=== PATIENT | female | born 1955 | race Caucasian/White ===

== ENCOUNTER 2018-01-23 07:47 | Day surgery (SDC) | payer BC ==
[~2018-01-23 07:47] MED LIST: ACETAMINOPHEN 1,000 MG/100 ML BTL IV ONE
[2018-01-23] MEDS ORDERED: BUPIVACAINE 0.25% W/EPI MPF 30ML VIAL IVP ONE (07:48)
[2018-01-23] MEDS ORDERED: ONDANSETRON HCL IV 4 MG/2 ML VIAL IVP ONE (07:48)
[2018-01-23] MEDS ORDERED: MIDAZOLAM HCL 2MG/2ML VIAL IV ONE (07:48)
[2018-01-23] MEDS ORDERED: LIDOCAINE 2% MDV (20MG/ML) 20ML VIAL IV ONE (07:48)
[2018-01-23] MEDS ORDERED: SEVOFLURANE 250 ML INH ONE (07:48)
[2018-01-23] MEDS ORDERED: PROPOFOL 10 MG/ML VIAL IV ONE (07:48)
[2018-01-23] MEDS ORDERED: DEXAMETHASONE 4 MG/ML 1ML VIAL IVP ONE (07:48)
[2018-01-23] MEDS ORDERED: FENTANYL PF 100MCG/2ML VIAL IV ONE (07:48)
[2018-01-23] MEDS ORDERED: HYDROCODONE/APAP 5/325MG TABLET PO ONE (07:48)
[2018-01-23 09:29] LABS: BLOOD UREA NITROGEN 15 mg/dL (8-23); CREATININE 0.7 mg/dL (0.5-0.9); EST GLOMERULAR FILTRATION RATE > 60 mL/min; GLUCOSE,RANDOM 102 mg/dL (74-109)
[2018-01-23 09:51] LABS: BASO % 0.8 % (0-6); EOS % 1.7 % (0-6); GRAN % 66.5 % (47-80); HEMATOCRIT 40.7 % (35.0-47.0); HEMOGLOBIN 13.1 gm/dl (11.6-16.0); LYMPH % 25.6 % (16-45); MEAN CELL VOLUME 91.5 fl (81-97); MEAN CORPUSCULAR HEMOGLOBIN 29.4 pg (27-33); MEAN CORPUSCULAR HGB CONC 32.2 g/dl (32-36); MEAN PLATELET VOLUME 8.8 fl (7.4-10.4); MONO % 5.4 % (0-9); PLATELET COUNT 301 K/uL (130-400); RED BLOOD COUNT 4.45 M/uL (3.80-5.40); RED CELL DISTRIBUTION WIDTH 15.3 % (11.5-14.5); WHITE BLOOD COUNT W/O DIFF 7.2 K/uL (4.2-12.2)
--- NOTE | 2018-01-24 13:20 | Operative Note ---
DATE OF SURGERY: Surgeon: Duran Franks DO PREOPERATIVE DIAGNOSES: 1. Torn medial meniscus of the left knee. 2. Osteoarthritis, left knee. POSTOPERATIVE DIAGNOSES: 1. Osteoarthritis of the left knee. 2. Synovitis of the left knee. OPERATION: 1. Arthroscopic chondroplasty of the patella, trochlea, medial femoral condyle, and lateral tibial plateau, left knee. 2. Arthroscopic partial synovectomy, left knee (2 compartments). DESCRIPTION OF PROCEDURE: This 62-year-old female was taken to the operating room and placed in the supine position on the operating room table where general anesthesia was induced. The left lower extremity was elevated. It was exsanguinated and the tourniquet inflated to 300 mmHg. Arthroscopic knee vazquez applied. Left knee prepped with Hibiclens and draped in the usual sterile fashion. An inferolateral portal was established for the 4 mm arthroscope and initial evaluation of the joint demonstrated advanced degenerative disease at the patellofemoral joint. An inferomedial portal was subsequently established. There was also evidence of chondrocalcinosis of the joint affecting all compartments. Through an inferomedial portal, chondroplasty of the patella was performed. A very large area which was completely denuded of all articular cartilage covering both the medial and lateral facets and median ridge occupying approximately 80% of the articular surface of the patella. In addition, there was an area of about 2 cm of the center of the trochlea which demonstrated full-thickness articular cartilage loss there as well with loose fragmented articular cartilage at the edges of this lesion. Chondroplasty was performed to restore stability to the articular cartilage there. Some synovitis was present there as well and partial synovectomy was performed. The medial compartment was entered, and large chunks of loose fragments of articular cartilage were present. Again chondrocalcinosis noted there as well. The articular cartilage was debrided with the rotating shaver to stable periphery. No normal articular cartilage of the medial femoral condyle was present. The medial meniscus was probed throughout its entirety. I did not see any significant pathology of the meniscus. We then directed our attention to the intracondylar notch, which was found to be normal. The lateral compartment was entered and again more chondrocalcinosis noted. There was also grade 3 change noted in the center of the weightbearing surface of the lateral tibial plateau but the lateral femoral condyle appeared normal. Chondroplasty was performed at the tibial plateau to stabilize the articular cartilage there. The wound was copiously irrigated with lactated Ringer's solution. It was suctioned. Debridement of the inflamed synovium of both the anterior portion of the medial and lateral compartments was performed. The joint was suctioned. The instruments were removed. The portals infiltrated with 0.25% Marcaine with epinephrine. Sterile dressings applied. Tourniquet and knee vazquez released and the patient taken to the recovery room in satisfactory condition. GROSS PATHOLOGY: This patient demonstrated marked osteoarthritis of the knee at the patellofemoral joint as well as severe grade 3 changes of the medial femoral condyle and the lateral tibial plateau as described above. No significant meniscal lesions were evident. Chondrocalcinosis present throughout the entire joint. CC: MD ANITA Albrecht
== END 2018-01-23 11:35 | disposition home or self-care (01) ==
LOC: SUR 07:47
PROVIDERS: ATTEND Orthopaedic Surgery
DX: M17.12 Unilateral primary osteoarthritis, left knee (principal); M65.862 Other synovitis and tenosynovitis, left lower leg
CPT/HCPCS: 29876; 01400; 85025; 80048; J2405; J3010

== ENCOUNTER 2018-06-12 05:41 | Inpatient (IN) | payer BC ==
[~2018-06-12 05:41] MED LIST changes: -ACETAMINOPHEN 1,000 MG/100 ML BTL IV ONE; +RINGERS SOLUTION,LACTATED 1,000 ML IV ONE
[2018-06-12] MEDS ORDERED: TRANEXAMIC ACID 1,000 MG/10 ML ML IV ONE (05:42)
[2018-06-12] MEDS ORDERED: FENTANYL PF 100MCG/2ML VIAL IV ONE (05:42)
[2018-06-12] MEDS ORDERED: MIDAZOLAM HCL 2MG/2ML VIAL IV ONE (05:42)
[2018-06-12] MEDS ORDERED: DEXAMETHASONE 4 MG/ML 1ML VIAL IVP ONE (05:42)
[2018-06-12] MEDS ORDERED: LIDOCAINE 2% MDV (20MG/ML) 20ML VIAL IV ONE (05:42)
[2018-06-12] MEDS ORDERED: PROPOFOL 10 MG/ML VIAL IV ONE (05:42)
[2018-06-12] MEDS ORDERED: ROPIVACAINE HCL (NAROPIN) /PF 5MG/ML 20ML VIAL IV ONE (05:42)
[2018-06-12] MEDS ORDERED: WATER STERILE FOR INJECTION 20 ML VIAL MC ONE (06:00)
[2018-06-12] MEDS ORDERED: CEFAZOLIN 2 Gram 2 GM/50 ML BAG IVPB SCH (06:00)
[2018-06-12] MEDS ORDERED: RINGERS SOLUTION,LACTATED 1,000 ML IV ONE ×2 (06:00→07:15)
[2018-06-12] MEDS ORDERED: CEFAZOLIN 1G VIAL IVP ONE (06:00)
[2018-06-12] MEDS ORDERED: FAMOTIDINE 20MG TABLET PO ONE (06:00)
[2018-06-12] MEDS ORDERED: MECLIZINE 25 MG TABLET PO ONE (06:00)
[2018-06-12] MEDS ORDERED: METOCLOPRAMIDE 10 MG TABLET PO ONE (06:00)
[2018-06-12] MEDS ORDERED: TRAMADOL HCL 50 MG TABLET PO PRN (09:45)
[2018-06-12] MEDS ORDERED: ZOLPIDEM TARTRATE 5 MG TABLET PO PRN (09:45)
[2018-06-12] MEDS ORDERED: NALOXONE 0.4 MG/1 ML VIAL IVP PRN (09:45)
[2018-06-12] MEDS ORDERED: DIPHENHYDRAMINE HCL 25 MG CAPSULE PO PRN (09:45)
[2018-06-12] MEDS ORDERED: AL HYDROX/MAG HYDROX 30ML UD PO PRN (09:45)
[2018-06-12] MEDS ORDERED: METOCLOPRAMIDE HCL 10 MG/2 ML VIAL IVP PRN (09:45)
[2018-06-12] MEDS ORDERED: ACETAMINOPHEN 325 MG TAB PO PRN (09:45)
[2018-06-12] MEDS ORDERED: SENNOSIDES/DOCUSATE SODIUM UD CAPSULE PO PRN (09:45)
[2018-06-12] MEDS ORDERED: MAGNESIUM HYDROXIDE 30 ML UDC PO PRN (09:45)
[2018-06-12] MEDS ORDERED: HYDROCODONE/APAP 5/325MG TABLET PO PRN ×2 (09:45)
[2018-06-12] MEDS: RINGERS SOLUTION,LACTATED 1,000 ML IV SCH (10:54)
[2018-06-12] MEDS ORDERED: TRANEXAMIC ACID 1,000 MG in 0.9 % SODIUM CHLORIDE 100ML 100 ML IVPB ONE (11:00)
[2018-06-12] MEDS: ONDANSETRON HCL IV 4 MG/2 ML VIAL IVP PRN (11:43)
[2018-06-12] MEDS: HYDROMORPHONE HCL 2 MG/ML VIAL IV PRN ×2 (11:47→19:28)
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
[2018-06-12] MEDS: CEFAZOLIN 1G VIAL IVP SCH ×2 (15:30→22:31)
[2018-06-12] MEDS: TRAMADOL HCL 50 MG TABLET PO PRN (17:23)
[2018-06-12] MEDS: ASPIRIN 325 MG TAB ENTERIC-COATED PO SCH (22:32)
[2018-06-12] MEDS: PANTOPRAZOLE SODIUM 40 MG TABLET PO SCH (22:32)
[2018-06-13] MEDS: ALPRAZOLAM 0.25 MG TABLET PO PRN ×2 (03:43→22:06)
[2018-06-13] MEDS: RINGERS SOLUTION,LACTATED 1,000 ML IV SCH ×2 (03:47→23:21)
[2018-06-13] MEDS: CEFAZOLIN 1G VIAL IVP SCH (06:55)
--- NOTE | 2018-06-13 09:20 | Operative Note ---
DATE OF SURGERY: 06/12/2018 PREOPERATIVE DIAGNOSIS: Primary osteoarthritis of the left knee. POSTOPERATIVE DIAGNOSIS: Primary osteoarthritis of the left knee. OPERATION: Left total knee arthroplasty. SURGEON: Duran Franks D.O. REFERRING PHYSICIAN: Eirca Irizarry M.D. ANESTHESIA: Spinal. PROCEDURE: This 62-year-old female was taken to the operating room and placed in the supine position on the operating room table where spinal anesthesia was induced. The left lower extremity was elevated. It was prepped with Hibiclens and draped in the usual sterile fashion, exsanguinated and the tourniquet inflated to 300 mmHg. All scrubbed personnel wore personal isolation suits. An anterior longitudinal midline incision was made, followed by a medial parapatellar arthrotomy incision. An intracondylar drill hole was made for the intramedullary alignment zoila and subsequently a 9 mm 5 degree valgus cut was made in the distal femur and the wafer of bone was removed. A sizing jig was affixed and a size 60 was seen to be the ideal size in the ML dimension, but slightly too short in the anterior posterior dimension. We did cut a 60 with about 1 mm notch, felt to be insignificant, and the wafers of bone were removed. We then directed our attention to the proximal tibia. An extramedullary alignment guide was used to cut the proximal tibia, referencing a 10 mm cut off the lateral tibial plateau. After appropriate alignment had been assured, the cut was made and the wafer of bone was removed. Remnants of the meniscus were removed and posterior osteophytes subsequently removed. The tibia was sized to a size 67. The stem punch was used and the knee was checked for soft tissue balance and flexion and extension and found to be satisfactory. Trial components were inserted and a 60 femur, 67 tibia, and an 10 mm bearing and a 34 x 8.5 mm patella was used, after we had cut the patella and then restored it to anatomic height. The knee was again taken through range of motion with the trial components in place. All components appeared to be stable. The knee had full flexion and full extension. All trial components were then removed and the wound copiously irrigated with pulse lavage lactated Ringer's solution. All components were cemented into place and all excess cement was removed after the insertion of each component. Initially the tibial base plate was placed, followed by the tibial bearing and then finally the patella was cemented into place. After the cement had hardened, the knee was again taken through range of motion and found to be stable. The wound was copiously irrigated with pulse lavage lactated Ringer's solution. A drain was placed through a separate stab incision. The arthrotomy incision was closed with 2 Vicryl, the subcutaneous tissue closed with 0 Vicryl. The skin was stapled and sterile dressings applied and the patient taken to the recovery room in satisfactory condition. GROSS PATHOLOGY: This patient had demonstrated severe patellofemoral osteoarthritis with severe full thickness articular cartilage loss noted on the patella and loss of bone as well. The medial femoral condyle also demonstrated advanced degenerative change with lateral compartment being more relatively spared. Final components inserted were a [employer] Vanguard size 60, a cruciate retaining femur, a size 67 tibial base plate, a 10 mm anterior stabilized E1 bearing, and a 34 x 8.5 mm patella was used. ANITA
[2018-06-13] MEDS: ONDANSETRON HCL IV 4 MG/2 ML VIAL IVP PRN ×3 (10:09→18:37)
[2018-06-13] MEDS: ASPIRIN 325 MG TAB ENTERIC-COATED PO SCH ×2 (10:09→22:08)
[2018-06-13] MEDS: OXYCODONE HCL/APAP 5MG/325MG TABLET PO PRN ×3 (10:17→18:21)
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
--- NOTE | 2018-06-13 12:08 | Physical Therapy Tx Note ---
Physical Therapy Tx Note - Treatment Note Tolerated: Fair Total Time Spent With Patient: 25 Physical Therapy Tx Note: Detail (The patient was in bed when PT arrived. The patient had complaints of L LE pain but did not rate her pain using 0-10 pain scale. The paitent was independent with supine to and from sit transfer. The patient ambulated with front wheeled walker 25 feet x 1 WBAT on the L LE with supervision for safety. The patient completed TKA HEP which included the following: SLR with use of strap, ankle pumps, quad sets, gluteal sets, heel slides supine,hamstring sets. The patient had a weak quad contraction and was unable to complete a SLR. The pt. declined stairs . Will see patient this pm for stair climbing.) Physical Therapy Problem List: Detail (1) Lightheadedness with sitting and standing 2) Decreased L knee AROM and L LE strength s/p surgery) Physical Therapy Goals: 1) The patient will ambulate independently household distances with front wheeled walker. 2) The patient will be independent with TKA HEP. 3) The patient will be independent with all transfers. 4) The patient will ambulate on stairs using proper technique with supervision for safety. Physical Therapy Plan: PT 1-2 sessions for gait training on levels and stairs, transfer training ans instructin in HEP,
[2018-06-13] MEDS: TRAMADOL HCL 50 MG TABLET PO PRN (13:08)
--- NOTE | 2018-06-13 14:43 | Physical Therapy Tx Note ---
Physical Therapy Tx Note - Treatment Note Tolerated: Good Total Time Spent With Patient: 25 Physical Therapy Tx Note: Detail (The pt. was in bed. The patient was independent with supine to and from sit transfer. The patient ambulated with front wheeled walker a distance of 30 feet x 1 and 11 feet x 1 WBAT on the L LE. The patient ambulated safely on 2 steps with use of 2 railings, using proper modified technique ( the patient descended the stairs going backwards safely- method she has done at home for awhile), requiring supervision for safety only. The patient has met all inpatient PT goals and is discharged from inpatient PT.) Physical Therapy Problem List: Detail (1) Lightheadedness with sitting and standing 2) Decreased L knee AROM and L LE strength s/p surgery) Physical Therapy Goals: 1) The patient will ambulate independently household distances with front wheeled walker. (Goal Met). 2) The patient will be independent with TKA HEP (Goal Met). 3) The patient will be independent with all transfers (Goal Met). 4) The patient will ambulate on stairs using proper technique with supervision for safety. (Goal Met) Physical Therapy Plan: The patient is discharged from inpatient PT .
[2018-06-13] MEDS ORDERED: ONDANSETRON 4 MG ODT TABLET SL PRN (19:00)
[2018-06-13] MEDS: PANTOPRAZOLE SODIUM 40 MG TABLET PO SCH (22:06)
[2018-06-14] MEDS: OXYCODONE HCL/APAP 5MG/325MG TABLET PO PRN ×2 (00:22→07:50)
[2018-06-14] MEDS: ASPIRIN 325 MG TAB ENTERIC-COATED PO SCH (09:43)
--- NOTE | 2018-06-14 10:00 | Discharge Summary ---
DATE OF ADMISSION: 06/12/2018 DATE OF DISCHARGE: 06/14/2018 ADMITTING DIAGNOSIS: Osteoarthritis of the left knee. DISCHARGE DIAGNOSIS: Osteoarthritis of the left knee. OPERATIVE PROCEDURE: Elective left total knee arthroplasty. This 62-year-old female was admitted to the hospital for elective total knee arthroplasty and tolerated the operative procedure well. She did not demonstrate any evidence of DVT during the course of her hospitalization. Pain was not controlled and we elected to keep her in the hospital for an additional day for pain control. She was to continue with her rehab exercises. She will be discharged on 06/14/2018. She was given a prescription for Zofran 4 mg, #20, 1 every 6 hours as necessary for pain. She was given a prescription for Percocet 5/325, #60, 1-2 every 6 hours as necessary for pain. She will wear her COREY hose during the day and remove them at night. She will have home physical therapy. Routine wound care instructions were given. She will follow up in the office in 2 weeks for staple removal. She will take aspirin 325 mg daily and will call me if there are any problems prior to being seen. ANITA
== END 2018-06-14 11:00 | disposition home or self-care (01) | DRG 470 ==
LOC: SUR 05:41 → MEDSURG 09:13 → SUR 09:13
PROVIDERS: ADMIT Orthopaedic Surgery; ATTEND Orthopaedic Surgery
PROC: 0SRD069 Replacement of Left Knee Joint with Oxidized Zirconium on Polyethylene Synthetic Substitute, Cemented, Open Approach (ICD-10-PCS; principal; 2018-06-12 07:30)
DX: M17.12 Unilateral primary osteoarthritis, left knee (principal); K21.9 Gastro-esophageal reflux disease without esophagitis; R42 Dizziness and giddiness
CPT/HCPCS: 97110; 97530; J0690; J2405; J7120